=== PATIENT | female | born 1960 | race Caucasian/White ===

== ENCOUNTER 2024-08-16 07:15 | Day surgery (SDC) | payer BC ==
[2024-08-13 14:32] VITALS: BP 119/85
[~2024-08-16] VITALS: Ht 160 cm; Wt 73.6 kg
[~2024-08-16 07:15] MED LIST: CEFAZOLIN SODIUM 2 GM/20 ML SYR IV SCH; COZAAR100 MG PO; DEXAMETHASONE SOD PHOS 4 MG/ML VIAL ONE; FAMOTIDINE 20 MG/ 2 ML VIAL ONE; HEParin SOD (PORCINE) 5,000 UNIT/ML SDV SUB-Q SCH; HYDROCHLOROTH12.5 MG PO; IBLOOD GLUCOSE TEST STRIP 1 EA TEST VI PRN; KETOROLAC TROMETHAMINE 30 MG/ML VIAL ONE; LACTATED RINGER'S 1,000 ML IV ONE; LACTATED RINGER'S 1,000 ML IV SCH; LEVOTHYROXINE88 MC1 PO; LIDOCAINE HCL 1% 5 ML SDV INJ ONE; LIDOCAINE HCL 4% 5 ML AMP ONE; METFORMIN HCL500 MG PO; METOCLOPRAMIDE HCL 10 MG/2 ML SDV ONE; MIDAZOLAM HCL 2 MG/2 ML VIAL ONE; OMEPRAZOLE20 MG PO; ROCURONIUM BROMIDE 50 MG/5 ML SYR ONE; SODIUM CHLORIDE 0.9% 40 ML IV ONE; SUCCINYLCHOLINE IN 0.9% NACL 200 MG/10 ML SYRINGE ONE; SUGAMMADEX SODIUM 200 MG/2 ML ML ONE; ZOCOR40 MG PO; fentaNYL citrate 100 MCG/2 ML VIAL ONE; iopamidoL 30 ML VIAL ONE; ondansetron HCL 4 MG/2 ML VIAL ONE; propofoL 200 MG/20 ML VIAL ONE
[2024-08-16 07:54] VITALS: BP 124/83
[2024-08-16 07:58] LABS: ANION GAP 13.7 (7-21); BUN/CREATININE RATIO 21.62 (6.0-28.6); CALCIUM 9.7 mg/dL (8.5-10.1); CREATININE, SERUM 0.74 mg/dL (0.55-1.02); POTASSIUM 3.7 mmol/L (3.5-5.1)
[2024-08-16] MEDS ORDERED: ACETAMINOPHEN 1,000 MG/100 ML VIAL ONE (08:12)
[2024-08-16] MEDS ORDERED: NALOXONE HCL 0.4 MG SYR IV PRN ×2 (08:15→11:00)
[2024-08-16] MEDS ORDERED: fentaNYL citrate 50 MCG/ML SDV IV PRN (08:15)
[2024-08-16] MEDS ORDERED: METOCLOPRAMIDE HCL 10 MG/2 ML SDV IV PRN (08:15)
[2024-08-16] MEDS ORDERED: droPERidol 5 MG/2 ML VIAL IV PRN (08:15)
[2024-08-16] MEDS ORDERED: PROCHLORPERAZINE EDISYLATE 10 MG/2 ML VIAL IV PRN (08:15)
[2024-08-16] MEDS ORDERED: IBLOOD GLUCOSE TEST STRIP 1 EA TEST VI PRN (08:15)
[2024-08-16] MEDS ORDERED: MEPERIDINE HCL 25 MG/1 ML VIAL IV PRN (08:15)
[2024-08-16] MEDS ORDERED: ondansetron HCL 4 MG/2 ML VIAL IV PRN (08:15)
[2024-08-16] MEDS ORDERED: dexmedeTOMIDine HCl 200 MCG/2 ML VIAL ONE (09:26)
[2024-08-16] MEDS ORDERED: propofoL 200 MG/20 ML VIAL ONE (09:27)
--- NOTE | 2024-08-16 10:42 | NUR ---
08/16/24 1042 Crystal Miller 1037-PT TO PACU IN SF POSITION. EYES CLOSED. BREATHING EASY AND UNLABORED WITH ORAL AIRWAY IN PLACE AND REPOSITIONING. SPO2 >95% ON 10 L O2 VIA SIMPLE MASK. PT DOES NOT RESPOND TO VERBAL TO TACTILE STIMULI. 1041- PT CONTINUES TO SLEEP WITH ORAL AIRWAY IN PLACE. DOES NOT RESPOND TO VERBAL OR TACTILE STIMULI. BREATHING EASY AND UNLABORED WITH ORAL AND MANUAL JAW THRUST.
[2024-08-16] MEDS ORDERED: IBUPROFEN600 MG PO (10:57)
[2024-08-16] MEDS ORDERED: ACETAMINOPHEN500 MG PO (10:57)
[2024-08-16] MEDS ORDERED: OXYCODON-ACETA1 EAC2 PO (10:57)
[2024-08-16] MEDS ORDERED: ACETAMINOPHEN 500 MG TAB PO PRN (11:00)
[2024-08-16] MEDS ORDERED: IBUPROFEN 600 MG TAB PO PRN (11:00)
[2024-08-16] MEDS ORDERED: LACTATED RINGER'S 1,000 ML IV SCH (11:00)
[2024-08-16] MEDS ORDERED: OXYCODONE/APAP 7.5/325 TAB PO PRN (11:00)
[2024-08-16 11:21] VITALS: BP 106/65
--- NOTE | 2024-08-16 11:25 | NUR ---
1115- PT ARRIVES FROM PACU. PT RESTING WITH EYES CLOSED BUT ANSWERS QUESTIONS CORRECTLY. PT HAS SOME ICE CHIPS. VITAL SIGNS OBTAINED. PT ENCOURAGED TO USE THE PILLOW TO SPLINT WITH COUGHING AND DEEP BREATHING. ALL QUESTIONS AND CONCERNS ANSWERED.
[2024-08-16 12:24] VITALS: BP 123/80
--- NOTE | 2024-08-16 12:31 | NUR ---
1220- PT IS SITTING UP AND IS SITTING WITH HER CHAIRSIDE. PT IS RESTING. PT TOLERATING APPLE JUICE WELL. PT O2 DECREASED FROM 2L TO 1L. PT O2 SATS MAINTAIN IN THE MID 90S.
[2024-08-16 13:19] VITALS: BP 122/82
--- NOTE | 2024-08-16 13:23 | NUR ---
1320-VITAL SIGNS OBTAINED. PT TALKING WITH RN AND . PT GIVEN PAIN MEDICATION, SEE EMAR. PT REPORTS HEAT PACK FOR HER ABDOMEN IS NICE. PT IS ON ROOM AIR. PT TOLERATING FOOD AND DRINKS WELL. PT DENIES QUESTIONS OR CONCERNS. PT DENIES NEEDS. CALL LIGHT IN REACH AND BED IN THE LOWEST AND LOCKED POSITION.
[2024-08-16 14:16] VITALS: BP 118/73
--- NOTE | 2024-08-16 14:56 | NUR ---
1410- PT UP TO THE BATHROOM WITH STEADY AND EVEN GAIT. SOME DRAINAGE FROM THE UMBILICAL SITE THAT WAS SEROSANGUNIOUS. PT IS ABLE TO MEET DISCHARGE CRITERIA AND RETURN TO ROOM SAFELY. DRESSING REINFORCED OVER THE UMBILICAL SITE WITH GAUZE AND PAPER TAPE. 1415- VITAL SIGNS OBTAINED. PT IS SITTING UP AND TALKING WITH RN AND . QUESTIONS AND CONCERNS ANSWERED. DISCHARGE INFORMATION GONE OVER. 1430- PT GETTING DRESSED WITH THE HELP OF HER . 1442- PT IS ABLE TO AMBULATE TO THE WHEELCHAIR. PT HAS ALL BELONGINGS, EDUCATION AND PAPERWORK. PT DCS FROM DAY SURGERY VIA WHEELCHAIR TO HER HUSBANDS VEHICLE.
--- NOTE | 2024-08-16 22:49 | EKG ---
[facility] [address] [facility] [place] [address] Signed Normal sinus rhythm Normal ECG No previous ECGs available Confirmed by Linda Chris MD () on 08/16/2024 10:49:03 PM Electronically Signed By: LINDA CHRIS MD 08/16/24 2249 PATIENT NAME: TAY BACA Electrocardiogram DATE OF : 64 PHYSICIAN: LINDA CHRIS MD REPORT #: [id number] REPORT IS CONFIDENTIAL AND NOT TO BE RELEASED WITHOUT AUTHORIZATION
--- NOTE | 2024-08-19 12:30 | OR ---
[facility] [address] [place], [place] [address] Signed DATE OF OPERATION: 08/16/2024 SURGEON: Juan Colunga MD PREOPERATIVE DIAGNOSIS: Chronic acalculous cholecystitis with gallbladder polyps x2. POSTOPERATIVE DIAGNOSIS: Chronic calculous cholecystitis with two adherent noncalcified gallstones. PROCEDURES: 1. Laparoscopic cholecystectomy with intraoperative cholangiogram. 2. Surgeon-directed fluoroscopy. ANESTHESIA: General endotracheal; Juan Pearce CRNA and local 10 mL of 0.25% Marcaine with epinephrine. 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 She has had several years of rather typical biliary colic symptoms including right upper abdominal pain. Her symptoms are far worse with fatty food. Her symptoms are occurring nearly every day. She underwent a CCK-HIDA test three years ago in [place], [place], which was said to be normal. I presume that her ultrasound was normal as well. A more recent ultrasound was performed on July 04, 2024 at [employer] under the direction of SILVIA Noel. This showed two "gallbladder polyps" which are well known to nearly always be adherent gallstones that are noncalcified. She is admitted at this time to undergo cholecystectomy for chronic cholecystitis. She understands the risk of bleeding, infection, bile duct injury, need for open procedure, common bile duct injury, need for other indicated procedures and also other unforeseen complications. Understanding these risks, she wished to proceed. FINDINGS: The gallbladder was indeed chronically inflamed. There were omental adhesions to the undersurface of the gallbladder. The liver appeared normal. The gallbladder had a distinct cystic artery and normal size cystic duct. Cholangiogram showed no sign of filling defects or impediment to flow into the duodenum. The cystic duct was relatively lengthy. Retrograde flow to the common hepatic duct was not seen due to profound antegrade flow through the duct; morphine was not administered to more fully visualize the more proximal biliary tree as the patient has extreme sensitivity to opiates causing Electronically Signed By: JUAN COLUNGA MD 08/19/24 1230 PATIENT NAME: TAY BACA OPERATIVE REPORT DATE OF : 64 REPORT #: [id number] PHYSICIAN: JUAN COLUNGA MD PCP: LEORA MUELLER PAC REPORT IS CONFIDENTIAL AND NOT TO BE RELEASED WITHOUT AUTHORIZATION [facility] [address] [place], [place] [address] Signed protracted nausea and on that basis, I decided to forego morphine administration for cholangiogram purposes. The gallbladder once excised had two stones as suspected rather than polyps proper. The liver itself was normal. DESCRIPTION OF PROCEDURE: The patient was brought to the operating room, given a general endotracheal anesthetic. Preoperative antibiotic Ancef was given and sequential compression device stockings were used. Heparin was subcutaneously administered as well. After satisfactory general endotracheal anesthesia, the abdomen was prepared with a chlorhexidine solution and draped sterilely. Palpation in the depths of the umbilicus showed a small defect. An infraumbilical incision was made and using an open Brenda cannula technique, pneumoperitoneum was achieved to a level of 14 mmHg of carbon dioxide gas. Intra-abdominal inspection showed no sign of ascites or carcinomatosis. The gallbladder was obscured from view. Three additional trocars were placed in their usual configuration in the subxiphoid, right midclavicular, and right anterior axillary line. Table was rotated into good position left side down with head up. Elevation of the liver edge allowed for visualization of the gallbladder which was somewhat distended. Gallbladder was grasped and elevated cephalad. Dense omental adhesions to the gallbladder were taken down with blunt and electrocautery dissection. The triangle of Calot was then dissected free with meticulous care, identifying well the cystic duct and a single cystic artery. The cystic artery was doubly clipped and a clip was applied across the gallbladder cystic duct junction. A transverse choledochotomy was made in the cystic duct, egress of green bile was noted. Using an Dunn type cholangiocatheter intraoperative cholangiography was undertaken with surgeon-directed fluoroscopy. Free flow of contrast into the biliary tree was noted with a relatively lengthy cystic duct. Profound antegrade flow showed no sign of filling defects within the duct and no impediment to flow into the duodenum. Retrograde filling of the proximal biliary tree was not forthcoming. Consideration was made for morphine administration to allow for ampullary spasm and retrograde filling of the ductal system, however, I was reminded by the assistant dean of students that she is profoundly sensitive to opiates causing protracted nausea. On that basis, and mindful of the findings before, the catheter was removed and the cystic duct was triply clipped and divided as was the cystic artery. The gallbladder was then dissected free in a retrograde fashion using electrocautery. Gallbladder was extracted through the infraumbilical port without problem, opened on the back table, found to have two small gallstones rather than polyps as we had suspected. There is no sign of neoplasm of the surface. Irrigation was undertaken in subhepatic space. A small amount of bleeding was noted in the soft tissue in the area of omental takedown. These areas were clipped and secured with electrocautery as appropriate. Lacie hemostatic agent was applied to the subhepatic space as well. The trocars were removed under direct visualization after irrigation and suctioning of excess irrigation fluid. All wounds were hemostatic. The infraumbilical fascial incision was reapproximated with interrupted 0 Vicryl suture. A 10 mL of 0.25% Marcaine with epinephrine was injected Electronically Signed By: JUAN COLUNGA MD 08/19/24 1230 PATIENT NAME: TAY BACA OPERATIVE REPORT DATE OF : 64 REPORT #: [id number] PHYSICIAN: JUAN COLUNGA MD PCP: LEORA MUELLER REPORT IS CONFIDENTIAL AND NOT TO BE RELEASED WITHOUT AUTHORIZATION [facility] [address] [place] [id number] Signed locally and the skin closed with interrupted 3-0 Vicryl. Steri-Strips were applied. The patient was ultimately extubated and transferred to the recovery room in good condition having suffered no complications. Sponge, needle, and instrument counts were reported as correct x3. MD SAMINA Lopez/VINCEL /[id number] cc: Leora Mueller PA-C Copies: LEORA MUELLER ~ Electronically Signed By: JUAN COLUNGA MD 08/19/24 1230 PATIENT NAME: TAY BACA OPERATIVE REPORT DATE OF : 64 REPORT #: [id number] PHYSICIAN: JUAN COLUNGA MD PCP: LEORA MUELLER PAC REPORT IS CONFIDENTIAL AND NOT TO BE RELEASED WITHOUT AUTHORIZATION
--- NOTE | 2024-08-20 15:46 | PATH ---
[facility] [address] [place], [place] [address] Signed SPECIMEN(S): A GALLBLADDER AND STONES SPECIMEN SOURCE: A. GALLBLADDER AND STONES CLINICAL HISTORY: Biliary colic FINAL PATHOLOGIC DIAGNOSIS: Gallbladder, cholecystectomy - Benign gallbladder tissue removed in therapy of biliary colic. - No malignancy identified. P MICROSCOPIC EXAMINATION: Histologic sections of all submitted blocks are examined by light microscopy. These findings, together with the gross examination, support the pathologic diagnosis. GROSS DESCRIPTION: The specimen, labeled and designated "Raj Baca, gallbladder and stones per requisition," is received in formalin and consists of Specimen: Surgically disrupted gallbladder. Dimensions: 8.1 x 3.4 x 3 cm. Serosa: Blue-green and smooth. Cystic Duct: Unobstructed. Calculi: Absent in container and specimen. Mucosa: Green and velvety. Wall thickness: 0.2 cm. Lymph node: No pericystic lymph nodes are grossly identified. Additional: None. Felt Puller sections are submitted in (A1). AA (under the direct supervision of a pathologist) The Gross Description was prepared using a voice recognition system. The report was reviewed for accuracy; however, sound-alike word errors, addition and/or deletions may occur. If there is any question about this report, please contact Client Services. ADDITIONAL NOTES: Immunohistochemical and/or in situ hybridization studies if performed in this case included appropriate positive controls that reacted as expected. This PATIENT NAME: TAY BACA PATHOLOGY DATE OF : 64 REPORT #: [id number] PHYSICIAN: QUITA KRISHNAN PCP: JON LOVE PAC REPORT IS CONFIDENTIAL AND NOT TO BE RELEASED WITHOUT AUTHORIZATION [facility] [address] [place], [place] [address] Signed test was developed and its performance characteristics determined by [facility]. It has not been cleared or approved by the U.S. Food and Drug Administration. The FDA has determined that such clearance or approval is not necessary. This test is used for clinical purposes. It should not be regarded as investigational or for research. [facility] is certified under the Clinical Laboratory Improvement Amendments of 1988 (CLIA) as qualified to perform high complexity clinical laboratory testing. PERFORMING LABORATORY: Technical component was performed by [facility], [address] [place] [id number] (CLIA# [id number]). Professional interpretation was performed by [email or web address] - [facility], [address] [place] [phone] (CLIA#: [id number]). Diagnostician: Orion Mueller MD Pathologist Electronically Signed 08/20/2024 Copies: ~ PATIENT NAME: TAY BACA PATHOLOGY DATE OF : 64 REPORT #: [id number] PHYSICIAN: QUITA PATHOLOGY PCP: JON LOVE PAC REPORT IS CONFIDENTIAL AND NOT TO BE RELEASED WITHOUT AUTHORIZATION
== END 2024-08-16 14:42 | disposition home or self-care (01) ==
LOC: DS 07:15
PROVIDERS: Nurse Anesthetist, Certified Registered; ATTEND Surgery
PROC: 0FT44ZZ Resection of Gallbladder, Percutaneous Endoscopic Approach (ICD-10-PCS; principal; 2024-08-16 09:00)
DX: K80.44 Calculus of bile duct with chronic cholecystitis without obstruction (principal); K66.0 Peritoneal adhesions (postprocedural) (postinfection); I10 Essential (primary) hypertension; Z90.711 Acquired absence of uterus with remaining cervical stump; Z96.651 Presence of right artificial knee joint; Z85.850 Personal history of malignant neoplasm of thyroid; Z88.2 Allergy status to sulfonamides; Z88.8 Allergy status to other drugs, medicaments and biological substances; Z79.899 Other long term (current) drug therapy
CPT/HCPCS: 00790; 36415; 74300; 80048; 93005; 93010; J0131; J0330; J0690; J1100; J1644; J1885; J2250; J2405; J2704; J2765; J3010; J3490; J7121; Q9967